=== PATIENT | male | born 1980 | race Hispanic/Latino ===

== ENCOUNTER 2025-02-09 01:37 | Emergency (ER) | payer OTHER, SELFPAY ==
[2025-02-09] MEDS ORDERED: NA CHLORIDE 0.9% 1,000 ML ONE (01:59)
[2025-02-09] MEDS ORDERED: ONDANSETRON 4 MG/2 ML VIAL ONE (01:59)
[2025-02-09] MEDS ORDERED: MORPHINE 4 MG/ML SYR ONE (01:59)
[2025-02-09 02:13] LABS: Absolute Lymphocytes (CBC) 1.1 K/uL (0.7-4.9); Hematocrit 46.3 % (39.6-49.0); Hemoglobin 16.1 g/dL (13.6-17.9); MCH 29.6 pg (27.0-35.0); MCHC 34.9 g/dL (32.0-36.0); MCV 85.0 fL (80-100); MPV 6.7 fL (7.6-11.3); Nucleated RBC Absolute Count 0.0 (0-0); Nucleated Red Blood Cells % 0.0 % (0-0); RBC Red Blood Cell Count 5.45 M/uL (4.33-5.43); White Blood Count 14.00 thou/uL (4.3-10.9)
[2025-02-09 02:24] LABS: ALT/SGPT 35.0 U/L (16-61); AST/SGOT 16.0 U/L (15-37); Albumin 3.9 g/dL (3.4-5.0); Albumin/Globulin Ratio 1.0 (1.1-1.8); Alkaline Phosphatase 81.0 U/L (45-117); Anion Gap 11.8 mEq/L (5.0-15.0); BUN Blood Urea Nitrogen 15.0 mg/dL (7-18); Globulin 3.8 g/dL (2.3-3.5); Glucose Level 154.0 mg/dL (74-106); Lipase 25.0 U/L (13-75); Potassium 3.8 mEq/L (3.5-5.1)
[2025-02-09 03:20] LABS: Blood Morphology Comment NOT SEEN (NOT SEEN); Differential Total Cells Count 100; Segmented Neutrophils 83 % (40-80)
[2025-02-09 03:29] LABS: Urine Microscopic Reflex YN NO UMIC
--- NOTE | 2025-02-09 05:39 | EDPHYS ---
Physician Documentation [facility] Name: Lavonne Espinoza Age: 44 yrs Sex: Male : 1980 Arrival Date: 02/09/2025 Time: 01:37 Bed 6 Private MD: ED Physician Ugo Robins HPI: 02/09 01:53 This 44 yrs old Male presents to ER via EMS with complaints of Abdominal Pain. cp 01:53 The patient presents with abdominal pain left mid/low back pain. Onset: The cp symptoms/episode began/occurred last night, about 2200. Associated signs and symptoms: Pertinent positives: constipation, Pertinent negatives: blood in stools, diarrhea, shortness of breath, testicular pain, vomiting. The symptoms are described as waxing/waning. Severity of pain: in the emergency department the pain has improved. Historical: - Allergies: 01:41 No Known Allergies; lg3 - Home Meds: 01:41 None [Active]; lg3 - PMHx: :41 None; lg3 - PSHx: 01:41 None; lg3 - Immunization history:: Adult Immunizations up to date. - Infectious Disease History:: Denies. - Social history:: Smoking status: Patient denies any tobacco usage or history of. Patient uses alcohol, occasionally. ROS: 01:55 Eyes: Negative for injury, pain, redness, and discharge, cp 01:55 Constitutional: Negative for body aches, chills, fever, poor PO intake, 01:55 Neck: Negative for pain with movement, pain at rest, stiffness, 01:55 Cardiovascular: Negative for chest pain, 01:55 Respiratory: Negative for cough, shortness of breath, wheezing, 01:55 Abdomen/GI: Positive for abdominal pain, constipation, of the left upper quadrant and left mid abdomen, Negative for vomiting, diarrhea, 01:55 Back: Positive for pain at rest, of the left mid back, 01:55 : Negative for urinary symptoms, testicular pain 01:55 Skin: Negative for cellulitis, rash, 01:55 All other systems are negative, Exam: 02:02 Head/Face: Normocephalic, atraumatic. cp 02:02 Constitutional: The patient appears in no acute distress, alert, awake, non-diaphoretic, non-toxic, well developed, well nourished, 02:02 Eyes: Periorbital structures: appear normal, Conjunctiva: normal, no exudate, no injection, Sclera: no appreciated abnormality, Lids and lashes: appear normal, bilaterally, 02:02 ENT: External ear(s): are unremarkable, Nose: is normal, Mouth: Lips: moist, Oral mucosa: moist, Posterior pharynx: Airway: no evidence of obstruction, patent, 02:02 Chest/axilla: Inspection: normal, 02:02 Cardiovascular: Rate: normal, Rhythm: regular, 02:02 Respiratory: the patient does not display signs of respiratory distress, Respirations: normal, no use of accessory muscles, no retractions, labored breathing, is not present, Breath sounds: are clear throughout, no decreased breath sounds, 02:02 Abdomen/GI: Inspection: abdomen appears normal, Bowel sounds: active, all quadrants, Palpation: soft, in all quadrants, mild abdominal tenderness, in the left upper quadrant, 02:02 Back: pain, that is mild, of the left mid back, ROM is normal, 02:02 Neuro: Orientation: to person, place \T\ time. Mentation: is normal, Vital Signs: 01:39 BP 126 / 89; Pulse 81; Resp 18 S; Temp 97.6(O); Pulse Ox 98% on R/A; Weight 68.04 kg lg3 (R); Height 5 ft. 2 in. (R); Pain 7/10; 03:44 BP 133 / 83; Pulse 84; Resp 16 S; Pulse Ox 100% on R/A; lg3 05:52 BP 132 / 80; Pulse 77; Resp 16 S; Pulse Ox 99% on R/A; lg3 01:39 Body Mass Index 27.44 (68.04 kg, 157.48 cm) lg3 01:39 Pain Scale: Adult lg3 MDM: 01:40 Medical Screening Exam initiated cp 02:00 Data reviewed: vital signs, nurses notes. cp 02:00 Awaiting: labs results, CT scan results. Transition of care: After a detail discussion cp of the patient's case, care is transferred to Ugo Robins MD. 02:04 Differential diagnosis: diverticulitis, non-specific abd pain, pancreatitis, cp Pyelonephritis, Ureterolithiasis, urinary tract infection. 05:37 ED course: Full patient's care and disposition taken over by me from Earle Page at sp3 change of shift. CT scan is negative. I discussed patient's lab work with him and his significant other regarding the leukocytosis and mild left shift. We all agree and joint decision making that prophylactic antibiotics are not the strategy we want to use. Currently vital signs are normal and pain is fully resolved and patient is afebrile. We have agreed that if he spikes a fever, gets worse in any way, that he will return here for further management. In the meantime conservative therapy and bland diet and follow-up with PCP as needed.. 02/09 01:47 Order name: CBC with Diff; Complete Time: 03:35 cp 02/09 01:47 Order name: CMP; Complete Time: 02:41 cp 02/09 01:47 Order name: Lipase; Complete Time: 02:41 cp 02/09 01:56 Order name: UA Rfx Randall Cult if indicated; Complete Time: 03:35 cp 02/09 02:17 Order name: Manual Differential; Complete Time: 03:35 EDMS 02/09 02:26 Order name: Abdomen EDMS 02/09 01:47 Order name: IV Saline Lock; Complete Time: 02:03 cp 02/09 01:47 Order name: Labs collected and sent; Complete Time: 02:03 cp Administered Medications: 02:04 Drug: NS 0.9% IV 1000 ml IV at 1 bolus Per protocol; to be given as a bolus over 60 zm minutes Route: IV; Rate: 1 bolus; Site: right antecubital; 02:58 Follow up: Response: No adverse reaction; IV Status: Completed infusion; IV Intake: lg3 1000ml 02:04 Drug: Ondansetron IVP 4 mg IVP once; over 2 minutes Route: IVP; Site: right antecubital;zm 02:58 Follow up: Response: No adverse reaction lg3 02:04 Drug: morphine IVP or IV 4 mg IVP once over 4 mins Route: IVP; Infused Over: 4 mins; zm Site: right antecubital; 02:59 Follow up: Response: No adverse reaction; Marked relief of symptoms; Pain is decreased lg3 Disposition Summary: 02/09/25 05:39 Discharge Ordered Notes: Location: Home sp3 Condition: Stable sp3 Diagnosis - Other abdominal pain sp3 Followup: sp3 - With: Private Physician - When: Upon discharge from the Emergency Department - Reason: Continuance of care Discharge Instructions: - Discharge Summary Sheet sp3 - Abdominal Pain, Adult sp3 - Form - Return To Work bm8 Forms: - Medication Reconciliation Form sp3 - Antibiotic Education sp3 - Prescription Opioid Use sp3 - Patient Portal Instructions sp3 - Leadership Thank You Letter sp3 - Family Work Release bm8 Prescriptions: - Tramadol 50 mg Oral Tablet - take 1 tablet ORAL route every 8 hours as needed; 12 tablet; Refills: 0, sp3 Product Selection Permitted Signatures: Dispatcher [employer] EDMS Earle Thornton PA-C PA-C cp Able, Lacie, RN RN lg3 Ugo Robins MD MD sp3 Joann Velasquez RN RN zm Corrections: (The following items were deleted from the chart) 01:47 01:47 CBC+H.LAB.BRZ ordered. EDMS EDMS 01:47 01:47 COMPREHENSIVE METABOLIC PANEL+C.LAB.BRZ ordered. EDMS EDMS 01:47 01:47 LIPASE+C.LAB.BRZ ordered. EDMS EDMS 01:48 01:48 Abdomen Pelvis W Con+CT.RAD.BRZ ordered. EDMS EDMS 01:56 01:56 Abdomen Pelvis W/Wo Con+CT.RAD.BRZ ordered. EDMS EDMS 01:56 01:56 UA Rfx Randall Cult if indicated+U.LAB.BRZ ordered. EDMS EDMS 05:39 05:37 ED course: CT scan is negative. I discussed patient's lab work with him and his sp3 significant other regarding the leukocytosis and mild left shift. We all agree and joint decision making that prophylactic antibiotics are not the strategy we want to use. Currently vital signs are normal and pain is fully resolved and patient is afebrile. We have agreed that if he spikes a fever, gets worse in any way, that he will return here for further management. In the meantime conservative therapy and bland diet and follow-up with PCP as needed.. sp3
--- NOTE | 2025-02-09 05:39 | ER ---
Nurse's Notes [facility] Name: Lavonne Espinoza Age: 44 yrs Sex: Male : 1980 Arrival Date: 02/09/2025 Time: 01:37 Bed 6 Private MD: Diagnosis: Other abdominal pain Presentation: 02/09 01:39 Chief complaint: Patient states: LUQ pain and headache X3 hrs. denies N/V/D. lg3 Coronavirus screen: Client denies travel out of the [place] in the last 14 days. At this time, the client does not indicate any symptoms associated with coronavirus-19. Ebola Screen: No symptoms or risks identified at this time. Initial Sepsis Screen: Does the patient meet any 2 criteria? No. Patient's initial sepsis screen is negative. Does the patient have a suspected source of infection? No. Patient's initial sepsis screen is negative. Risk Assessment: Do you want to hurt yourself or someone else? Patient reports no desire to harm self or others. Onset of symptoms was February 08, 2025. 01:39 Method Of Arrival: EMS: [facility] lg3 01:39 Acuity: IMANI 3 lg3 Triage Assessment: 01:41 General: Appears in no apparent distress. comfortable, Behavior is calm, cooperative. lg3 Pain: Complains of pain in left upper quadrant Pain radiates to mid back area. EENT: No deficits noted. No signs and/or symptoms were reported regarding the EENT system. Neuro: No deficits noted. Villanueva Agitation-Sedation Scale (RASS): 0 - Alert and Calm Level of Consciousness is awake, alert, obeys commands, Oriented to person, place, time, situation. Neuro: Reports headache. Cardiovascular: No deficits noted. Denies chest pain, shortness of breath, Capillary refill < 3 seconds Clubbing of nail beds is absent JVD is absent Patient's skin is warm and dry. Respiratory: No deficits noted. Airway is patent Respiratory effort is even, unlabored, Respiratory pattern is regular, symmetrical. GI: Abdomen is round non-distended, Bowel sounds present X 4 quads. Abd is soft X 4 quads. : No signs and/or symptoms were reported regarding the genitourinary system. Derm: No deficits noted. No signs and/or symptoms reported regarding the dermatologic system. Skin is intact, is healthy with good turgor, Skin is dry, Skin is normal, Skin temperature is warm. Musculoskeletal: No deficits noted. No signs and/or symptoms reported regarding the musculoskeletal system. Circulation, motion, and sensation intact. Range of motion: intact in all extremities. Historical: - Allergies: 01:41 No Known Allergies; lg3 - Home Meds: 01:41 None [Active]; lg3 - PMHx: 01:41 None; lg3 - PSHx: 01:41 None; lg3 - Immunization history:: Adult Immunizations up to date. - Infectious Disease History:: Denies. - Social history:: Smoking status: Patient denies any tobacco usage or history of. Patient uses alcohol, occasionally. Screenin:42 [facility] ED Fall Risk Assessment (Adult) History of falling in the last 3 months, lg3 including since admission No falls in past 3 months (0 pts) Confusion or Disorientation No (0 pts) Intoxicated or Sedated No (0 pts) Impaired Gait No (0 pts) Mobility Assist Device Used No (0 pt) Altered Elimination No (0 pt) Score/Fall Risk Level 0 - 2 = Low Risk Oriented to surroundings, Maintained a safe environment, Educated pt \T\ family on fall prevention, incl call for assistance when getting out of bed, Assessed \T\ reinforced patient's understanding of fall precautions. Abuse screen: Denies threats or abuse. Denies injuries from another. Nutritional screening: No deficits noted. Tuberculosis screening: No symptoms or risk factors identified. Assessment: 01:42 General: see triage assessment. lg3 03:44 Reassessment: Patient appears in no apparent distress at this time. No changes from lg3 previously documented assessment. Patient and/or family updated on plan of care and expected duration. Pain level reassessed. Patient is alert, oriented x 3, equal unlabored respirations, skin warm/dry/pink. Patient states feeling better. Patient states symptoms have improved. 04:47 Reassessment: Patient appears in no apparent distress at this time. No changes from lg3 previously documented assessment. Patient and/or family updated on plan of care and expected duration. Pain level reassessed. Patient is alert, oriented x 3, equal unlabored respirations, skin warm/dry/pink. 05:52 Reassessment: Patient appears in no apparent distress at this time. No changes from lg3 previously documented assessment. Patient and/or family updated on plan of care and expected duration. Pain level reassessed. Patient is alert, oriented x 3, equal unlabored respirations, skin warm/dry/pink. Patient denies pain at this time. Patient states feeling better. Patient states symptoms have improved. Vital Signs: 01:39 BP 126 / 89; Pulse 81; Resp 18 S; Temp 97.6(O); Pulse Ox 98% on R/A; Weight 68.04 kg lg3 (R); Height 5 ft. 2 in. (R); Pain 7/10; 03:44 BP 133 / 83; Pulse 84; Resp 16 S; Pulse Ox 100% on R/A; lg3 05:52 BP 132 / 80; Pulse 77; Resp 16 S; Pulse Ox 99% on R/A; lg3 01:39 Body Mass Index 27.44 (68.04 kg, 157.48 cm) lg3 01:39 Pain Scale: Adult lg3 ED Course: 01:38 Patient arrived in ED. lg3 01:38 Drea Bowman RN is Primary Nurse. lg3 01:40 Earle Thornton PA-C is PHCP. cp 01:40 Ugo Robins MD is Attending Physician. cp 01:41 Triage completed. lg3 01:41 Arm band placed on right wrist. lg3 01:42 Patient has correct armband on for positive identification. Placed in gown. Bed in low lg3 position. Call light in reach. Side rails up X 1. Client placed on continuous cardiac and pulse oximetry monitoring. NIBP monitoring applied. Door closed. Noise minimized. Warm blanket given. Pillow given. 02:03 Initial lab(s) drawn, by me, sent to lab. Inserted saline lock: 20 gauge in right lg3 antecubital area, using aseptic technique. Blood collected. Flushed with 10 mL NS. 02:46 Abdomen In Process Unspecified. EDMS 02:59 UA Rfx Randall Cult if indicated Sent. vk 02:59 Urine collected: clean catch specimen, clear. vk 05:53 No provider procedures requiring assistance completed. IV discontinued, intact, lg3 bleeding controlled, No redness/swelling at site. Pressure dressing applied. 06:00 Provided Education on: post er care. bm8 Administered Medications: 02:04 Drug: NS 0.9% IV 1000 ml IV at 1 bolus Per protocol; to be given as a bolus over 60 zm minutes Route: IV; Rate: 1 bolus; Site: right antecubital; 02:58 Follow up: Response: No adverse reaction; IV Status: Completed infusion; IV Intake: lg3 1000ml 02:04 Drug: Ondansetron IVP 4 mg IVP once; over 2 minutes Route: IVP; Site: right antecubital;zm 02:58 Follow up: Response: No adverse reaction lg3 02:04 Drug: morphine IVP or IV 4 mg IVP once over 4 mins Route: IVP; Infused Over: 4 mins; zm Site: right antecubital; 02:59 Follow up: Response: No adverse reaction; Marked relief of symptoms; Pain is decreased lg3 Medication: 01:42 VIS not applicable for this client. lg3 Intake: 02:58 IV: 1000ml; Total: 1000ml. lg3 Outcome: 05:39 Discharge ordered by . sp3 05:53 Discharged to home ambulatory, lg3 05:53 Condition: stable 05:53 Discharge instructions given to patient, Instructed on discharge instructions, follow up and referral plans. medication usage, Demonstrated understanding of instructions, follow-up care, medications, Prescriptions given X 1, 06:01 Patient left the ED. bm8 Signatures: Dispatcher [employer] EDMS Earle Thornton PA-C PA-C cp Able, Lacie RN RN lg3 Ugo Robins MD MD sp3 Joann Velasquez RN RN zm Kruse, Vivian vk McDonald, Brad, RN RN bm8
[2025-02-09 06:26] VITALS: TEMP 97.6
[2025-02-09 06:31] VITALS: BP 132/80; O2SAT 99
--- NOTE | 2025-02-11 22:02 | RAD REPORT ---
CLINICAL HISTORY: Left upper abdomen, left mid and low back pain. COMPARISON: None. TECHNIQUE: CT ABDOMEN PELVIS WITH IV CONTRAST on 02/09/2025 1:56 AM CDT This exam was performed according to our departmental dose-optimization program, which includes autom ated exposure control, adjustment of the mA and/or kV according to patient size and/or use of iterative reconstruction technique. FINDINGS: Lower lungs are clear. Abdomen: The liver is normal in appearance. There is no biliary dilatation. Gallbladder is normal in appearance. The pancreas and spleen are normal in appearance. The adrenal glands and kidneys are unremarkable. Abdominal aorta is normal in course and caliber without aneurysm. There is no free air. There is no r etroperitoneal adenopathy. Pelvis: There is no bowel obstruction. Urinary bladder is unremarkable. There is no free fluid. Appen solomon is normal. Skeleton: There are no acute osseous findings. No suspicious bony lesions. IMPRESSION: No acute process. Electronically signed by: Antonio Mccurdy MD 02/09/2025 05:20 AM CDT RP Due to temporary technical issues with the PACS/[employer] reporting system, reports are being munir d by the in-house radiologist without review as a courtesy to ensure prompt reporting the interpreting radiologist is fully responsible for the content of the report. Transcribed Date/Time: 02/11/2025 10:02 PM
== END 2025-02-09 06:01 | disposition home or self-care (01) ==
LOC: ER 01:37
DX: R10.9 Unspecified abdominal pain (principal)
CPT/HCPCS: 96361; 85025; 36415; 81003; 83690; 80053; 74177; 96375; 96374; 99284; Q9967; J2405; J7030